=== PATIENT | male | born 1975 | race African-American/Black ===

== ENCOUNTER 2017-05-23 01:23 | Inpatient (IN) | payer SELFPAY ==
[2017-05-23 01:31] VITALS: BMI 35.5
[2017-05-23] MEDS ORDERED: NS 1000 ML 1,000 ML ONE ×2 (01:32→04:12)
[2017-05-23] MEDS ORDERED: ZOFRAN INJ 4 MG VIAL IVP ONE ×2 (01:40→05:41)
[2017-05-23] MEDS ORDERED: NS 1000 ML 1,000 ML IV ONE ×2 (01:40→04:02)
[2017-05-23] MEDS ORDERED: DEMEROL INJ IVP ONE ×2 (01:40→05:49)
--- NOTE | 2017-05-23 01:41 | DR.GENAD ---
HPI - PCP Primary Care Physician: shayla - HPI Comment HPI Comment: HISTORY BELOW. - Complaint/Symptoms Chief Complaint Doctors Comments: ABDOMINAL CRAMPING, NAUSEA, VOMITING AND DIARRHEA TIMES 2 DAYS. RUNNING FEVER. SICK SINCE FLU SHOT 4 DAYS AGO. STOOL WATERY. BELCHING A LOT WITH GAS SMELLING LIKE EGG. Chief Complaint:: pt got flu shot sunday and has been feeling sick since diarrhea for 2 days stomach cramps severe - Nurses notes reviewed Nurses Notes Review: Yes - Source History Provided: Patient - Mode of Arrival Mode of Arrival: Ambulatory - Timing Onset of Chief Complaint: 05/18/17 Came on: Suddenly - Duration Duration: Constant Duration: Days - Severity Severity: Moderate PMH - PMH Past Medical History: No Past Surgical History: Yes Surgical History: Cholecystectomy - Family History History of Family Medical Conditions: Yes Family Medical History: Diabetes Mellitus, Hypertension - Social History Alcohol Use: Occasionally Do you use any recreational Drugs:: No Lives With: Family Lives Where: Home - infectious screening In the last 2 months have you had wt loss of >10#?: NO Have you had fever, night sweats or hemotysis?: No Have you traveled outside the country in the last 6 months?: No Isolation: Standard ROS - Review of Systems Constitutional: Fever, Weakness, Fatigue. negative: Chills Eyes: No Symptoms Reported. negative: Eye Pain, Discharge ENTM: Nose Congestion. negative: Ear Pain, Nose Discharge, Throat Pain Respiratoy: Productive Cough. negative: Non-Productive Cough, Short of Breath, Wheezing, Hemoptysis Cardiovascular: No Symptoms Reported Gastrointestinal/Abdominal: Abdominal Pain, Diarrhea, Nausea, Vomiting Genitourinary: No Symptoms Reported. negative: Dysuria, Frequency, Hematuria Neurological: Weakness Musculoskeletal: Muscle Pain Integumentary: Dryness Hematologic/Lymphatic: No Symptoms Reported Endocrine: No Symptoms Reported All Other Systems: Reviewed and Negative PE - Vital Signs Vitals: Temperature 99.6 F Pulse Rate 118 Respiratory Rate 18 Blood Pressure [Left Arm] 134/82 Blood Pressure 123/73 O2 Sat by Pulse Oximetry 96 - General Limitations: No Limitations General Appearance: Alert - Head Head Exam: Normal Inspection - Eyes Eye exam: Normal Appearance - ENT ENT Exam: Normal External Ear Exam External Ear Exam: Normal External Inspection TM/Canal Exam: Bilateral Normal Nose Exam: Normal Nose Exam Mouth Exam: Normal Inspection Throat Exam: Normal Inspection - Neck Neck Exam: Trachea Midline - Chest Chest Inspection: Symmetric Chest Wall Rise - Respiratory Respiratory Exam: Normal Lung Sounds Bilat Respiratory Exam: Bilateral Clear to Auscultation - Cardiovascular Cardiovascular Exam: Regular Rate, Normal Rhythm, Normal Heart Sounds - Abdominal Exam Abdominal Exam: Normal Bowel Sounds, Soft, Tenderness Abdominal Tenderness: RLQ, LLQ, Suprapubic, Moderate - Extremities Extremities Exam: Normal Inspection - Back Back Exam: Normal Inspection - Neurologic Neurological Exam: Alert, Oriented X3 - Psychiatric Psychiatric Exam: Normal Affect, Normal Mood - Skin Skin Exam: Dry MDM - Differential Diagnosis Differential Diagnosis: ABDOMINAL PAIN, GASTROENTERITIS, DIARRHEA Course - Treatment Treatment: SEE ORDERS. IV FLUIDS, IV MED FOR NAUSEA AND PAIN IN ED. - Education/Counseling Education/Counseling: Patient, Education Educated On: Treatment, Diagnosis ROR - Labs Reviewed Laboratory Results Reviewed?: Yes Result Diagrams: 05/23/17 01:35 05/23/17 01:35 Laboratory: WBC 11.6 X10^3/uL (3.6-10.0) H 05/23/17 01:35 RBC 5.43 X10^6/uL (4.7-6.0) 05/23/17 01:35 Hgb 16.7 g/dL (13.5-18.0) 05/23/17 01:35 Hct 49.2 % (42.0-54.0) 05/23/17 01:35 MCV 90.6 fL (80.0-100.0) 05/23/17 01:35 MCH 30.8 pg (27.0-34.0) 05/23/17 01:35 MCHC 34.0 g/dL (33.0-35.0) 05/23/17 01:35 RDW 14.6 % (11.6-16.5) 05/23/17 01:35 Plt Count 164 X10^3/uL (150.0-450.0) 05/23/17 01:35 MPV 8.8 fL (7.4-11.0) 05/23/17 01:35 Neut % 79.0 % (42.0-75.0) H 05/23/17 01:35 Lymph % 9.8 % (21.0-51.0) L 05/23/17 01:35 [place] % 9.6 % (0.0-13.0) 05/23/17 01:35 Eos % 1.4 % (0.9-2.9) 05/23/17 01:35 Baso % 0.2 % (0.2-1.0) 05/23/17 01:35 Neut # 9.1 x10^3/uL (2.2-4.8) H 05/23/17 01:35 Lymph # 1.1 X10^3/uL (1.3-2.9) L 05/23/17 01:35 [place] # 1.1 x10^3/uL (0.3-0.8) H 05/23/17 01:35 Eos # 0.2 x10^3/uL (0.0-0.2) 05/23/17 01:35 Baso # 0.0 X10^3/uL (0.0-0.1) 05/23/17 01:35 Absolute Nucleated RBC 0.4 /100WBC 05/23/17 01:35 Sodium 136 mmol/L (136-145) 05/23/17 01:35 Corrected Sodium 136 mmol/L (136-145) 05/23/17 01:35 Potassium 4.1 mmol/L (3.5-5.1) 05/23/17 01:35 Chloride 103 mmol/L (98-107) 05/23/17 01:35 Carbon Dioxide 25.6 mmol/L (21-32) 05/23/17 01:35 BUN 14 mg/dL (7-18) 05/23/17 01:35 Creatinine 1.32 mg/dL (0.70-1.30) H 05/23/17 01:35 Est GFR (MDRD) Af Amer > 60 (>60) 05/23/17 01:35 Est GFR (MDRD) Non-Af > 60 (>60) 05/23/17 01:35 Glucose 114 mg/dL (65-99) H 05/23/17 01:35 Calcium 8.8 mg/dL (8.5-10.1) 05/23/17 01:35 Corrected Calcium TNP 05/23/17 01:35 Total Bilirubin 0.60 mg/dL (0.2-1.0) 05/23/17 01:35 AST 26 Units/L (15-37) 05/23/17 01:35 ALT 42 Units/L (12-78) 05/23/17 01:35 Alkaline Phosphatase 72 Units/L (46-116) 05/23/17 01:35 Total Protein 8.5 g/dL (6.4-8.2) H 05/23/17 01:35 Albumin 3.9 g/dL (3.4-5.0) 05/23/17 01:35 Globulin 4.6 g/dL (2.5-4.5) H 05/23/17 01:35 Albumin/Globulin Ratio 0.8 Ratio (1.1-2.1) L 05/23/17 01:35 Amylase 48 Units/L (25-115) 05/23/17 01:35 Lipase 122 Units/L (73-393) 05/23/17 01:35 - XRAY XRAY Interpreted by: Radiologist - Diagnosis Discharge Problem: Gastroenteritis, Acute diarrhea, Dehydration, Gastric outlet obstruction Abdominal pain Qualifiers: Abdominal location: generalized Qualified Code(s): R10.84 - Generalized abdominal pain - Discharge Plan Disposition: ADMITTED INPATIENT Condition: Stable - Follow ups/Referrals - Instructions
[2017-05-23] MEDS ORDERED: ZOFRAN INJ 4 MG VIAL ONE ×2 (01:44→05:35)
[2017-05-23] MEDS ORDERED: DEMEROL INJ ONE ×2 (01:44→05:47)
[2017-05-23 03:05] LABS: BASOPHILS % (AUTO) 0.2 % (0.2-1.0); EOSINOPHILS # (AUTO) 0.2 x10^3/uL (0.0-0.2); EOSINOPHILS % (AUTO) 1.4 % (0.9-2.9); HEMATOCRIT 49.2 % (42.0-54.0); HEMOGLOBIN 16.7 g/dL (13.5-18.0); LYMPHOCYTES # (AUTO) 1.1 X10^3/uL (1.3-2.9); LYMPHOCYTES % (AUTO) 9.8 % (21.0-51.0); MEAN CORPUSCULAR HEMOGLOBIN 30.8 pg (27.0-34.0); MEAN CORPUSCULAR VOLUME 90.6 fL (80.0-100.0); MEAN PLATELET VOLUME 8.8 fL (7.4-11.0); MONOCYTES # (AUTO) 1.1 x10^3/uL (0.3-0.8); MONOCYTES % (AUTO) 9.6 % (0.0-13.0); NEUTROPHILS # (AUTO) 9.1 x10^3/uL (2.2-4.8); PLATELET COUNT 164 X10^3/uL (150.0-450.0); RED BLOOD COUNT 5.43 X10^6/uL (4.7-6.0); RED CELL DISTRIBUTION WIDTH 14.6 % (11.6-16.5); WHITE BLOOD COUNT 11.6 X10^3/uL (3.6-10.0)
[2017-05-23 03:12] LABS: ALANINE AMINOTRANSFERASE 42 Units/L (12-78); ALBUMIN 3.9 g/dL (3.4-5.0); ALKALINE PHOSPHATASE 72 Units/L (46-116); AMYLASE 48 Units/L (25-115); ASPARTATE AMINO TRANSFERASE 26 Units/L (15-37); BLOOD UREA NITROGEN 14 mg/dL (7-18); CALCIUM 8.8 mg/dL (8.5-10.1); CARBON DIOXIDE 25.6 mmol/L (21-32); CHLORIDE 103 mmol/L (98-107); COR NA(FOR HYPERGLY) 136 mmol/L (136-145); CREATININE 1.32 mg/dL (0.70-1.30); LIPASE 122 Units/L (73-393); SODIUM 136 mmol/L (136-145); TOTAL PROTEIN 8.5 g/dL (6.4-8.2); eGFR BLACK RACES > 60 (>60); eGFR NON BLACK RACES > 60 (>60)
[2017-05-23] MEDS ORDERED: PEPCID 20 MG IV PREMIX* 20 MG/50 ML BAG IV ONE ×2 (04:01→04:12)
[2017-05-23] MEDS ORDERED: BENTYL I.M. INJ 10 MG IM ONE ×2 (04:01→04:13)
--- NOTE | 2017-05-23 04:42 | RAD ---
Acute abdominal series Indication:Abdominal pain Comparison: None available Findings: The trachea is midline. The cardiac silhouette is unremarkable. The lungs are clear without focal i nfiltrate or effusion. The bony thorax is unremarkable. Moderate gaseous dilatation of loops of small bowel with gaseous distention of proximal loops of colo n. No free air or pneumatosis.. No pathological soft tissue mass or calcification can be observed. The bony structures are grossly intact. IMPRESSION: 1. No acute cardiopulmonary disease. 2. Abnormal bowel gas pattern, given the moderate gaseous dilatation of the small bowel and gaseous distention of the proximal colon this represents either an adynamic ileus or early partial small navin l obstruction. Radiographic follow-up is recommended. Reported By:
[2017-05-23] MEDS ORDERED: NS 100 ML IV 100 ML IV ONE (06:22)
[2017-05-23 06:34] LABS: STOOL FOR WBC POSITIVE (NEGATIVE)
--- NOTE | 2017-05-23 06:55 | CT ---
HISTORY: Abdominal pain Study: CT abdomen pelvis without contrast Comparison: Plain films same date, CT abdomen pelvis 07/04/2015 Technique: Axial noncontrast images with coronal and sagittal reformats. Dose reduction procedures we re used with mA/kv adjusted for body size. The examination is limited due to the lack of intravenous and oral contrast. Findings: The lung bases are clear. The liver, spleen, adrenal glands, and pancreas are within normal limits to the limitations of an unenhanced examination. The kidneys are unobstructed and without stones. No ur eteral calculi are identified. No enlarged intraperitoneal or retroperitoneal lymphadenopathy is iden tified. There are some nonenlarged mesenteric nodes present. The appendix is not identified with abso lute certainty. There are no secondary signs of appendicitis. There is marked distention of the stoma ch with gastric contents gastric outlet obstruction cannot be excluded. The patient may benefit from nasogastric suction. The entire small bowel and portions of the colon are somewhat distended with flu id. There is no obvious transition point suggesting that this is due to a generalized ileus of uncert ain etiology. There are no findings to suggest diverticulitis or colitis. Examination of the pelvis d emonstrated no evidence for pelvic masses, pelvic fluid, or pelvic lymphadenopathy. No lytic or blast ic skeletal lesions are identified. IMPRESSION: Marked gastric distension with fluid in other gastric contents. Gastric outlet obstruction cannot be excluded. The patient may benefit from nasogastric suction. Findings consistent with a generalized small and large bowel ileus of uncertain etiology Reported By:
[2017-05-23 06:58] LABS: CRYPTOSPORIDIUM PARVUM ANTIGEN NEGATIVE (NEGATIVE); GIARDIA LAMBLIA ANTIGEN NEGATIVE (NEGATIVE)
[2017-05-23] MEDS ORDERED: ZOFRAN INJ 4 MG VIAL IVP PRN (07:58)
--- NOTE | 2017-05-23 08:59 | RAD ---
HISTORY: Tube placement. Study: Two views of the abdomen. Comparison:None Findings: The cardiomediastinal silhouette is normal. No focal consolidations, pleural effusions or pneumothora x. There is a NG tube terminating within the side port near the GE junction. Bowel gas pattern is no rmal. IMPRESSION: 1. No acute cardiopulmonary process. 2. A NG tube terminating within the side port near the GE junction. Recommend advancement. Reported By:
--- NOTE | 2017-05-23 09:50 | RAD ---
Abdomen, one view Indication: NG tube placement Comparison: Radiograph from earlier today Findings: The NG tube has been advanced and now terminates within the distal stomach beyond the field of view. The side-port is now distal to the GE junction. Visualized bowel gas pattern is nonobstruct jonny and the imaged lung bases are clear. Impression: Satisfactory NG tube placement. Reported By:
[2017-05-23] MEDS: PROTONIX INJ 40 MG VIAL IVP SCH ×3 (10:50→21:25)
[2017-05-23] MEDS: NS 1000 ML 1,000 ML IV SCH ×2 (10:50→21:25)
[2017-05-23] MEDS: CIPRO IV 400 MG PREMIX* 400 MG/200 ML IV.SOLN. IV SCH ×2 (10:50→21:25)
[2017-05-23] MEDS: FLAGYL IV PREMIX 500 MG BAG 500 MG/100 ML BAG IV SCH ×4 (10:51→21:25)
[2017-05-23] MEDS: PHENERGAN INJ 25 MG IV PRN ×2 (10:51→15:03)
[2017-05-23] MEDS: DEMEROL INJ IVP PRN ×3 (10:51→22:51)
[2017-05-23] MEDS ORDERED: FLAGYL IV PREMIX 500 MG BAG 500 MG/100 ML BAG IV ONE (21:05)
[2017-05-24] MEDS ORDERED: FLAGYL IV PREMIX 500 MG BAG 500 MG/100 ML BAG IV ONE (03:01)
[2017-05-24] MEDS: FLAGYL IV PREMIX 500 MG BAG 500 MG/100 ML BAG IV SCH ×4 (03:15→22:04)
[2017-05-24] MEDS: NS 1000 ML 1,000 ML IV SCH ×2 (05:37→15:12)
[2017-05-24 06:46] LABS: BASOPHILS % (AUTO) 0.3 % (0.2-1.0); EOSINOPHILS # (AUTO) 0.1 x10^3/uL (0.0-0.2); EOSINOPHILS % (AUTO) 1.2 % (0.9-2.9); HEMATOCRIT 45.9 % (42.0-54.0); HEMOGLOBIN 15.6 g/dL (13.5-18.0); LYMPHOCYTES # (AUTO) 1.1 X10^3/uL (1.3-2.9); LYMPHOCYTES % (AUTO) 10.4 % (21.0-51.0); MEAN CORPUSCULAR HGB CONC 34.1 g/dL (33.0-35.0); MEAN CORPUSCULAR VOLUME 91.1 fL (80.0-100.0); MEAN PLATELET VOLUME 8.6 fL (7.4-11.0); MONOCYTES % (AUTO) 9.2 % (0.0-13.0); NEUTROPHILS # (AUTO) 8.3 x10^3/uL (2.2-4.8); NEUTROPHILS % (AUTO) 78.9 % (42.0-75.0); PLATELET COUNT 142 X10^3/uL (150.0-450.0); RED BLOOD COUNT 5.04 X10^6/uL (4.7-6.0); RED CELL DISTRIBUTION WIDTH 14.5 % (11.6-16.5); WHITE BLOOD COUNT 10.5 X10^3/uL (3.6-10.0)
[2017-05-24 06:56] LABS: ALANINE AMINOTRANSFERASE 33 Units/L (12-78); ALBUMIN 3.5 g/dL (3.4-5.0); ALKALINE PHOSPHATASE 65 Units/L (46-116); ASPARTATE AMINO TRANSFERASE 18 Units/L (15-37); BLOOD UREA NITROGEN 11 mg/dL (7-18); CALCIUM 8.4 mg/dL (8.5-10.1); CARBON DIOXIDE 25.2 mmol/L (21-32); CHLORIDE 103 mmol/L (98-107); CREATININE 1.11 mg/dL (0.70-1.30); SODIUM 137 mmol/L (136-145); TOTAL PROTEIN 8.1 g/dL (6.4-8.2); eGFR BLACK RACES > 60 (>60); eGFR NON BLACK RACES > 60 (>60)
[2017-05-24] MEDS: DEMEROL INJ IVP PRN ×3 (07:22→23:37)
[2017-05-24] MEDS: CIPRO IV 400 MG PREMIX* 400 MG/200 ML IV.SOLN. IV SCH ×2 (08:38→22:03)
[2017-05-24] MEDS: PROTONIX INJ 40 MG VIAL IVP SCH ×2 (08:39→22:00)
[2017-05-24] MEDS: PHENERGAN INJ 25 MG IV PRN ×2 (10:13→14:59)
--- NOTE | 2017-05-24 13:27 | RAD ---
HISTORY: Follow-up small bowel obstruction Study: KUB Comparison: 05/23/2017 Findings: Nasogastric tube is in place with the tip and side hole present within the region of the gastric fund us. There are surgical clips from cholecystectomy. Mildly dilated loops of small bowel are present, i mproved from prior studies. Air and stool are present throughout the colon. No evidence of obstructio n is seen. No opaque stones identified. Degenerative changes are present involving the lumbar spine. IMPRESSION: Interval improvement as noted above. There are still a few gaseous distended loops of small bowel pre sent. Air and stool are present throughout the colon. No evidence of obstruction is seen. Reported By:
--- NOTE | 2017-05-24 13:47 | DR.H&P ---
H&P - History & Physical for Day of: H&P Date: 05/23/17 - Chief Complaint Chief Complaint: ANDOMINAL PAIN, N/V/D - Allergies Allergies/Adverse Reactions: Allergies Allergy/AdvReac Type Severity Reaction Status Date / Time No Known Drug Allergies Allergy Verified 05/23/17 01:24 - History of Present Illness History of Present Illness: patient is a 42-year-old black male who is an ER admission after presenting with complaints of abdominal pain nausea vomiting and diarrhea. Patient states he's been sick on his stomach with diarrhea for approximately 2-3 days prior to arrival to the ER patient states his abdomenis distended and tender patient had abdomen x-ray and also CT of the abdomen and pelvis which revealed an out gastric L obstruction in small and large bowel ileus patient was admitted for further evaluation pain and nausea control as well as antibiotic treatments and stool studies - Past Medical History Past Medical History: denies: Coronary Artery Disease, Diabetes, Hypertension - Past Surgical History Surgical History: Cholecystectomy - Family History Family Medical History: Diabetes Mellitus, Hypertension - Social History Does patient currently use any type of tobacco product: Yes Have you used tobacco products in the last 12 months: Yes Type of Tobacco Use: Cigarettes Alcohol Use: Occasionally Drug Use: None - Medications Home Medications: NK [NK] 05/23/17 [History Confirmed 05/23/17] - Review of Systems Constitutional: Weakness Eyes: No Symptoms Reported ENT: No Symptoms Reported Respiratory: No Symptoms Reported Cardiovascular: No Symptoms Reported Gastrointestinal: Nausea, Vomiting, Abdominal Pain, Diarrhea Genitourinary: No Symptoms Reported Musculoskeletal: No Symptoms Reported Skin: No Symptoms Reported Neurological: No Symptoms Reported - Physical Exam Vital Signs: Temperature 99.4 F Pulse Rate [Left Brachial] 101 Pulse Rate [Right Brachial] 90 Pulse Rate 118 Respiratory Rate 16 Blood Pressure [Left Arm] 136/87 Blood Pressure 123/73 O2 Sat by Pulse Oximetry 97 Oriented: Normal Eyes: Normal Ear: Normal Nose: Normal Throat: Normal Respiratory: Clear Throughout Cardiovascular: Normal : Normal Auscultation: Bowel Sounds: Decreased Palpation: Other (DISTENTED) Tenderness: Diffuse Skin: Normal Musculoskeletal: Normal Psychiatric: Normal Speech Pattern: Clear, Appropriate - Assessment/Plan (1) Dehydration Status: Acute (2) Gastric outlet obstruction Status: Acute Plan: admit, pain and nausea control, IV hydration, IV antibiotic therapy, stool studies, NG tube to low intermittent suction, nothing by mouth repeat a.m. labs
[2017-05-24 19:13] LABS: BILIRUBIN,URINE NEGATIVE (NEGATIVE); BLOOD/HEMOGLOBIN,URINE 2+ (NEGATIVE); GLUCOSE, URINE NEGATIVE (NEGATIVE); KETONES,URINE 3+ (NEGATIVE); LEUKOCYTE ESTERASE ,URINE 2+ (NEGATIVE); NITRITES,URINE NEGATIVE (NEGATIVE); PROTEIN,URINE 1+ (NEGATIVE); UROBILINOGEN,URINE NORMAL (NORMAL)
[2017-05-24 19:21] LABS: APPEARANCE,URINE SLIGHTLY HAZY (CLEAR); BACTERIA,URINE 1+ /HPF (NEGATIVE); COLOR,URINE DARK YELLOW (YELLOW); MUCUS,URINE FEW /HPF (NEGATIVE); SQUAMOUS EPITHELIAL CELL,UR NEGATIVE /HPF (NEGATIVE)
[2017-05-25] MEDS: NS 1000 ML 1,000 ML IV SCH ×2 (01:47→09:02)
[2017-05-25] MEDS: FLAGYL IV PREMIX 500 MG BAG 500 MG/100 ML BAG IV SCH ×2 (02:58→08:00)
[2017-05-25 04:33] LABS: ALANINE AMINOTRANSFERASE 25 Units/L (12-78); ALBUMIN 2.8 g/dL (3.4-5.0); ALKALINE PHOSPHATASE 50 Units/L (46-116); ASPARTATE AMINO TRANSFERASE 19 Units/L (15-37); BLOOD UREA NITROGEN 11 mg/dL (7-18); CALCIUM 7.9 mg/dL (8.5-10.1); CARBON DIOXIDE 26.9 mmol/L (21-32); CHLORIDE 105 mmol/L (98-107); COR CA(FOR HYPOALB) 8.9 mg/dL (8.5-10.1); CREATININE 1.18 mg/dL (0.70-1.30); SODIUM 138 mmol/L (136-145); TOTAL PROTEIN 6.5 g/dL (6.4-8.2); eGFR BLACK RACES > 60 (>60); eGFR NON BLACK RACES > 60 (>60)
[2017-05-25 06:11] LABS: BASOPHILS % (AUTO) 0.3 % (0.2-1.0); EOSINOPHILS # (AUTO) 0.2 x10^3/uL (0.0-0.2); HEMATOCRIT 40.5 % (42.0-54.0); HEMOGLOBIN 13.8 g/dL (13.5-18.0); LYMPHOCYTES # (AUTO) 1.3 X10^3/uL (1.3-2.9); LYMPHOCYTES % (AUTO) 17.3 % (21.0-51.0); MEAN CORPUSCULAR HEMOGLOBIN 31.2 pg (27.0-34.0); MEAN CORPUSCULAR HGB CONC 34.2 g/dL (33.0-35.0); MEAN CORPUSCULAR VOLUME 91.1 fL (80.0-100.0); MEAN PLATELET VOLUME 8.8 fL (7.4-11.0); MONOCYTES # (AUTO) 0.8 x10^3/uL (0.3-0.8); MONOCYTES % (AUTO) 10.7 % (0.0-13.0); NEUTROPHILS # (AUTO) 5.3 x10^3/uL (2.2-4.8); NEUTROPHILS % (AUTO) 68.7 % (42.0-75.0); PLATELET COUNT 119 X10^3/uL (150.0-450.0); RED BLOOD COUNT 4.44 X10^6/uL (4.7-6.0); RED CELL DISTRIBUTION WIDTH 14.2 % (11.6-16.5); WHITE BLOOD COUNT 7.8 X10^3/uL (3.6-10.0)
[2017-05-25] MEDS ORDERED: K-LYTE EFFERVESCENT PO PRN (06:15)
--- NOTE | 2017-05-25 07:50 | RAD ---
HISTORY: Abdomen pain, follow-up small bowel obstruction. Study: KUB, done portably Comparison: 05/24/2017. Findings: Gaseous distention of small bowel loops in the right abdomen has significantly diminished compared to the prior studies. Air and stool present throughout the colon. Findings have the appearance of a mil d small bowel ileus. No evidence of obstruction is seen. There are surgical clips from cholecystectom y. Degenerative disc disease is present at L2-3 with disc space narrowing and marginal spondylosis. N o opaque stone is seen IMPRESSION: Further improvement with gaseous distention of small bowel loops in the right abdomen. Findings likel y represent a mild small bowel ileus. No obstruction is identified. Reported By:
[2017-05-25] MEDS: CIPRO IV 400 MG PREMIX* 400 MG/200 ML IV.SOLN. IV SCH (08:00)
[2017-05-25] MEDS: PROTONIX INJ 40 MG VIAL IVP SCH (08:00)
[2017-05-25 11:36] VITALS: BP 134/83
== END 2017-05-25 12:50 | disposition home or self-care (01) | DRG 392 ==
LOC: ER 01:23 → OBS 08:50 → MED/SURG 05-24 18:41
PROVIDERS: ADMIT Internal Medicine; ATTEND Internal Medicine
PROC: 0D9670Z Drainage of Stomach with Drainage Device, Via Natural or Artificial Opening (ICD-10-PCS; principal; 2017-05-23)
DX: R10.84 Generalized abdominal pain (principal); K31.1 Adult hypertrophic pyloric stenosis; K52.89 Other specified noninfective gastroenteritis and colitis; E86.0 Dehydration; R53.1 Weakness; R11.2 Nausea with vomiting, unspecified; E11.65 Type 2 diabetes mellitus with hyperglycemia; I10 Essential (primary) hypertension
CPT/HCPCS: 36415; 74000; 74022; 74176; 80053; 81001; 82150; 83630; 83690; 83735; 85025; 87045; 87328; 87329; 87336; 87427; 87493; 87899; 96365; 96367; 96372; 96374; 96375; 99284; A4222; C9113; S0028; S0030; J0500; J0744; J2175; J2405; J2550